=== PATIENT | female | born 2000 | race Caucasian/White ===

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

== ENCOUNTER 2025-01-29 23:48 | Emergency (ER) | payer OTHER ==
[~2025-01-29] VITALS: Ht 162.6 cm; Wt 59.0 kg
[2025-01-30 01:00] VITALS: BP 103/68
[2025-01-30 01:59] LABS: Source, Urine Clean Catch
[2025-01-30 02:04] LABS: BASOPHILS ABSOLUTE AUTO 0.04 K/mm3 (0.00-0.23); BASOPHILS PERCENT AUTO 1 % (0-2); EOSINOPHILS ABSOLUTE AUTO 0.03 K/mm3 (0.00-0.68); EOSINOPHILS PERCENT AUTO 0 % (0-6); Hematocrit 32.6 % (33.0-51.0); IMMATURE GRAN ABSOLUTE AUTO 0.02 K/mm3 (0.00-0.10); IMMATURE GRAN PERCENT AUTO 0 % (0-1); LYMPHOCYTES ABSOLUTE AUTO 1.55 K/mm3 (0.84-5.20); LYMPHOCYTES PERCENT AUTO 18 % (21-46); MONOCYTES ABSOLUTE AUTO 0.54 K/mm3 (0.16-1.47); MONOCYTES PERCENT AUTO 6 % (4-13); Mean Corpuscular HGB 28.4 pg (26.0-34.0); Mean Corpuscular HGB Conc 33.7 g/dL (31.5-36.5); Mean Corpuscular Volume 84 fL (80-100); Mean Platelet Volume 9.8 fL (9.1-12.4); NEUTROPHILS ABSOLUTE AUTO 6.25 K/mm3 (1.96-9.15); NEUTROPHILS PERCENT AUTO 74 % (41-73); Platelet Count 229 K/mm3 (150-400); Red Blood Cell Count 3.87 M/mm3 (3.80-5.20); White Blood Cell Count 8.43 K/mm3 (4.00-11.30)
[2025-01-30 02:07] LABS: Bilirubin, Urine Neg (Neg); Blood, Urine 5+ (Neg); Glucose Qualitative, Urine Neg (Neg); Ketones, Urine Neg (Neg); Leukocyte Esterase, Urine Neg (Neg); Nitrite, Urine Neg (Neg); Protein, Urine Neg (Neg); Specific Gravity, Urine 1.025 (1.003-1.022); Urobilinogen, Urine NORM (Normal)
[2025-01-30 02:10] LABS: Appearance, Urine Clear (Clear); Color, Urine Yellow (P-Yellow)
[2025-01-30 02:21] LABS: Amorphous Light (0-Heavy); Bacteria Mod /hpf; Mucus Light (0-Heavy); Squamous Epithelial Cells Few /hpf (Few); White Blood Cells, Urine 0-2 /hpf (0-5)
[2025-01-30 02:37] LABS: Albumin/Globulin Ratio 0.7 (0.8-1.8); Bilirubin, Total 0.2 mg/dL (0.1-1.0); Bun/Creatinine Ratio 6.5 (12.0-20.0); Calcium, Blood 9.1 mg/dL (8.5-10.1); Creatinine, Blood 0.46 mg/dL (0.40-1.00); Globulin, Blood 4.1 g/dL (2.2-4.0); Potassium, Blood 3.5 mmol/L (3.5-5.5); Total Protein, Blood 7.1 g/dL (6.4-8.2)
[2025-01-30] MEDS ORDERED: NS 1,000 ML IV SCH (04:05)
[2025-01-30] MEDS ORDERED: CEPH500 PO (04:20)
== END 2025-01-30 04:37 | disposition home or self-care (01) ==
LOC: ER 23:48
PROVIDERS: Emergency Medicine
DX: O46.92 Antepartum hemorrhage, unspecified, second trimester (principal); O99.891 Other specified diseases and conditions complicating pregnancy; R82.71 Bacteriuria; O99.282 Endocrine, nutritional and metabolic diseases complicating pregnancy, second trimester; E86.0 Dehydration; Z3A.20 20 weeks gestation of pregnancy; Z88.0 Allergy status to penicillin; Z59.89 Other problems related to housing and economic circumstances
CPT/HCPCS: 76815; 80053; 81001; 84702; 85025; 86850; 86900; 86901; 87086; 99284-25; J7030

== ENCOUNTER → 2025-04-24 | Outpatient (CLI) | payer OTHER ==
[~2025-04-24] MED LIST changes: +CEPH500 PO
== END | disposition home or self-care (01) ==
LOC: LAB SHORT 15:54 → LAB 15:54
DX: O09.93 Supervision of high risk pregnancy, unspecified, third trimester (principal)
CPT/HCPCS: 87081; 87150

== ENCOUNTER → 2025-04-29 | Outpatient (CLI) | payer OTHER ==
[2025-04-29 20:24] LABS: Bacterial Vaginosis PCR Negative (NEGATIVE); Candida Group, PCR NOT DETECTED (NOT DETECT); Candida glabrata-krusei, PCR NOT DETECTED (NOT DETECT)
== END ==
LOC: LAB 16:41 → LAB SHORT 16:41
PROVIDERS: Obstetrics & Gynecology
DX: N76.0 Acute vaginitis (principal)
CPT/HCPCS: 81515

== ENCOUNTER 2025-05-29 19:58 | Inpatient (IN) | payer OTHER ==
[~2025-05-29] VITALS: Ht 170.2 cm; Wt 75.9 kg
[2025-05-29] MEDS ORDERED: ePHEDrine Sulfate 50 MG/ML 1ML Injection XX PRN (20:10)
[2025-05-29] MEDS ORDERED: Carboprost Tromethamine 250 MCG/ML 1ML Amp IM PRN (20:10)
[2025-05-29] MEDS ORDERED: OXYTOCIN/RINGER'S LACTATE 500 ML IV PRN (20:10)
[2025-05-29] MEDS ORDERED: Ondansetron HCl 2 MG / ML 2ML Vial IV PRN (20:10)
[2025-05-29] MEDS ORDERED: FentaNYL 2mcg/ml-Bup 0.1% Epd 250 ML EPI PRN (20:10)
[2025-05-29] MEDS ORDERED: Oxytocin 10 Unit / ML Vial IM PRN (20:10)
[2025-05-29] MEDS ORDERED: Methylergonovine Maleate 0.2MG / ML 1ML Amp IM PRN (20:10)
[2025-05-29 20:24] VITALS: BP 120/75
[2025-05-29] MEDS ORDERED: Tranexamic Acid 100 ML IV SCH (20:30)
[2025-05-29 20:55] LABS: BASOPHILS ABSOLUTE AUTO 0.03 K/mm3 (0.00-0.23); BASOPHILS PERCENT AUTO 0 % (0-2); EOSINOPHILS ABSOLUTE AUTO 0.01 K/mm3 (0.00-0.68); EOSINOPHILS PERCENT AUTO 0 % (0-6); Hematocrit 34.0 % (33.0-51.0); Hemoglobin 11.4 g/dL (11.5-16.0); IMMATURE GRAN ABSOLUTE AUTO 0.05 K/mm3 (0.00-0.10); IMMATURE GRAN PERCENT AUTO 1 % (0-1); LYMPHOCYTES ABSOLUTE AUTO 1.34 K/mm3 (0.84-5.20); LYMPHOCYTES PERCENT AUTO 13 % (21-46); MONOCYTES ABSOLUTE AUTO 0.63 K/mm3 (0.16-1.47); MONOCYTES PERCENT AUTO 6 % (4-13); Mean Corpuscular HGB Conc 33.5 g/dL (31.5-36.5); Mean Corpuscular Volume 82 fL (80-100); NEUTROPHILS ABSOLUTE AUTO 8.33 K/mm3 (1.96-9.15); NEUTROPHILS PERCENT AUTO 80 % (41-73); NRBC ABSOLUTE 0.00 K/mm3 (0.00-0.02); NRBC Auto 0.0 /100 WBC (0.0-0.2); Platelet Count 275 K/mm3 (150-400); RDW Coefficient Variation 13.2 % (11.7-14.2); RDW Standard Deviation 39.8 fL (35.1-46.3)
[2025-05-29 22:57] VITALS: BP 122/69
[2025-05-29] MEDS ORDERED: OXYTOCIN/RINGER'S LACTATE 500 ML IV SCH (23:10)
[2025-05-30] VITALS (16 sets, daily range): BP systolic 105–129; BP diastolic 51–82
[2025-05-30] MEDS ORDERED: FentaNYL Citrate 50 MCG/ML 2 ML Injection ONE (07:38)
[2025-05-30] MEDS ORDERED: FentaNYL Citrate 50 MCG/ML 2 ML Injection IV PRN (07:45)
--- NOTE | 2025-05-30 14:30 | NUR ---
[facility] charting reviewed.
[2025-05-31] VITALS (22 sets, daily range): BP systolic 92–119; BP diastolic 61–74
[2025-05-31] MEDS ORDERED: CeFAZolin Sodium 2,000 MG in NS 100 ML IV SCH (06:25)
[2025-05-31] MEDS ORDERED: Citric Acid/Sodium Citrate 30 ML BTL PO STA (06:37)
[2025-05-31] MEDS ORDERED: Metoclopramide HCl 5MG / ML 2ML Vial IV ONE (06:40)
[2025-05-31] MEDS ORDERED: FentaNYL Citrate 50 MCG/ML 2 ML Injection ONE (07:31)
[2025-05-31] MEDS ORDERED: Oxytocin 10 Unit / ML Vial ONE (07:32)
[2025-05-31] MEDS ORDERED: Ketorolac Tromethamine 30mg Vial ONE (07:32)
[2025-05-31] MEDS ORDERED: Ondansetron HCl 2 MG / ML 2ML Vial ONE (07:32)
[2025-05-31] MEDS ORDERED: Phenylephrine HCl 10mg/ml 1 ml Vial ONE (07:43)
[2025-05-31] MEDS ORDERED: Phenylephrine HCl 100 MCG/ML-NS 10MLSYR (1MG/10ML) ONE (07:58)
--- NOTE | 2025-05-31 08:24 | NUR ---
05/31/25 0824 Scoles,Marquita FHTS PRIOR TO C/S 120S WITH AUDIBLE DECEL TO 100S. VIABLE FEMALE INFANT DELIVERED VIA PRIMARY CS DUE TO FAILURE TO PROGRESS AT 0814. 9/9 APGARS. NO GASES SENT PER PROVIDER ORDER. CORD BLOOD COLLECTED FOR RH STATUS AND ALSO GENETIC TESTING. SENT WITH BABY RN VIDAL FLOR RN. MEASUREMENTS PENDING. SEE MD NOTE FOR OPERATIVE DETAILS.
[2025-05-31] MEDS ORDERED: Ondansetron HCl 2 MG / ML 2ML Vial IV PRN ×2 (08:30→09:10)
[2025-05-31] MEDS ORDERED: HYDROmorphone HCl/Pf 1MG SYR IV PRN (08:30)
[2025-05-31] MEDS ORDERED: FentaNYL Citrate 50 MCG/ML 2 ML Injection IV PRN (08:30)
[2025-05-31] MEDS ORDERED: ePHEDrine Sulfate 50 MG/ML 1ML Injection IV PRN (08:30)
[2025-05-31] MEDS ORDERED: Methylergonovine Maleate 0.2MG / ML 1ML Amp IM PRN (09:00)
[2025-05-31] MEDS ORDERED: Magnesium Hydroxide Conc 10 ML UDC PO PRN (09:00)
[2025-05-31] MEDS ORDERED: OXYTOCIN/RINGER'S LACTATE 500 ML IV SCH (09:05)
[2025-05-31] MEDS ORDERED: Morphine Sulfate 4 MG/1 ML Injection IV PRN (09:10)
[2025-05-31] MEDS ORDERED: Rho(D) Immune Globulin 300 MCG / SYR IM ONE ×2 (09:10→16:00)
[2025-05-31] MEDS ORDERED: Carboprost Tromethamine 250 MCG/ML 1ML Amp IM PRN (09:15)
[2025-05-31] MEDS ORDERED: Ketorolac Tromethamine 30mg Vial IV SCH (10:00)
[2025-06-01 04:16] VITALS: BP 115/64
[2025-06-01 05:57] LABS: BASOPHILS ABSOLUTE AUTO 0.03 K/mm3 (0.00-0.23); BASOPHILS PERCENT AUTO 0 % (0-2); EOSINOPHILS ABSOLUTE AUTO 0.01 K/mm3 (0.00-0.68); EOSINOPHILS PERCENT AUTO 0 % (0-6); Hematocrit 28.8 % (33.0-51.0); Hemoglobin 9.7 g/dL (11.5-16.0); IMMATURE GRAN ABSOLUTE AUTO 0.06 K/mm3 (0.00-0.10); IMMATURE GRAN PERCENT AUTO 1 % (0-1); LYMPHOCYTES ABSOLUTE AUTO 1.23 K/mm3 (0.84-5.20); LYMPHOCYTES PERCENT AUTO 11 % (21-46); MONOCYTES ABSOLUTE AUTO 0.51 K/mm3 (0.16-1.47); MONOCYTES PERCENT AUTO 4 % (4-13); Mean Corpuscular HGB Conc 33.7 g/dL (31.5-36.5); Mean Corpuscular Volume 84 fL (80-100); NEUTROPHILS ABSOLUTE AUTO 9.90 K/mm3 (1.96-9.15); NEUTROPHILS PERCENT AUTO 84 % (41-73); NRBC ABSOLUTE 0.00 K/mm3 (0.00-0.02); NRBC Auto 0.0 /100 WBC (0.0-0.2); Platelet Count 243 K/mm3 (150-400); RDW Coefficient Variation 13.6 % (11.7-14.2); RDW Standard Deviation 41.3 fL (35.1-46.3)
[2025-06-01] MEDS ORDERED: Prenatal Vit/FE Fumarate/FA 1 Tab PO SCH (09:00)
[2025-06-01 09:48] VITALS: BP 120/75
--- NOTE | 2025-06-01 10:28 | NUR ---
CONCERNS FOR BONDING BETWEEN MOM AND BABY. PER THE NIGHTSHIFT NURSE, HARRY, PT DID NOT HOLD HER BABY AT ALL LAST NIGHT. DURING MY TIME CARING FOR HER YESTERDAY, THE PT HELD HER BABY FOR 2 SHORT MOMENTS. PT HAS NOT DONE ANY OF THE FEEDINGS OR DIAPER CHANGES. THIS RN TALKED WITH PT THIS MORNING ABOUT HOW IMPORTANT IT IS FOR HER TO LEARN TO HOW FEED HER BABY AND BE ABLE TO TAKE CARE OF HER WHEN SHE IS DISCHARGED HOME, PT SATEED "OH, OKAY" AND THEN FELL ASLEEP WHILE RN WAS FEEDING BABY AND EXPLAINING HOW TO DO IT. JUAN PABLO NELSON, THIS [facility], WAS CALLED THIS MRONING AROUND 1018 TO ASK TO COME AND EVALUATE PT. PT HAS NOT YET COMPLTED HER DEPRESSION SCREENING, BUT SHE HAS AT HER BEDSIDE AND HAS BEEN INSTRUCTED TO COMPLETE IT.
--- NOTE | 2025-06-01 10:42 | NUR ---
RN ENCOURAGED PT TO HOLD HER BABY AND ATTEMPT TO DO THE NEXT FEED THAT IS DUE AROUND 1100. PT IS CURRENTLY HOLDING HER , WHILE IS SWADDLED IN HER ARMS.
[2025-06-01 15:48] VITALS: BP 121/75
[2025-06-01] MEDS ORDERED: IBUP800 PO (16:17)
[2025-06-01] MEDS ORDERED: DOCU100 PO (16:18)
[2025-06-01] MEDS ORDERED: ACET500 PO (16:18)
[2025-06-01 19:04] VITALS: BP 123/78
[2025-06-02 00:06] VITALS: BP 125/76
[2025-06-02 05:22] VITALS: BP 115/70
[2025-06-02 08:31] VITALS: BP 126/77
[2025-06-02 13:39] VITALS: BP 122/76
--- NOTE | 2025-06-02 15:41 | NUR ---
ATTEMPTED TO CONTACT DALLIN NELSON, ASSOCIATE PROFESSOR OF MUSIC. LEFT A VOICEMAIL FOR HER TO CALL THIS RN BACK.
--- NOTE | 2025-06-02 16:06 | NUR ---
DALLIN NELSON, INSTRUCTOR ADJUNCT SURGICAL TECHNICIAN, CALLED BACK. THIS RN ASKED IF PT HAD BEEN SEEN BY HER YESTERDAY, SHE STATES THAT SHE WAS UNABLE TO COME BY. UPDATED HER THAT PPDS WAS 0, BUT EXPRESSED CONCERNS FOR POOR BONDING AND THAT THE PLAN IS TO PLACE PT TO BOARDER STATUS. DALLIN STATED THAT SHE WILL COME BY TOMORROW TO EVALUATE HER.
[2025-06-02 16:12] VITALS: BP 122/79
--- NOTE | 2025-06-02 18:45 | NUR ---
SHIFT SUMMARY PT WAS ENCOURAGED TO HOLD HER AND DID APPROXIMATELY TWICE TODAY. PT MOTHER AND SUSPECTED FATHER OF BABY PROVIDED THE MAJORITY OF CARE THROUGHOUT THE SHIFT TODAY. THIS RN TO BEDSIDE TO ASSIST WITH FEEDS NEEDED. PT ASKED IF SHE HAS PARTICIPATED OR WOULD LIKE TO PROVIDE FEEDS, SHE STATED "I TRIED TO THIS MORNING". SHE STATES THAT SHE HAS CHANGED ONE DIAPER. SPOKE WITH PT REGARDING GOING TO BOARDER STATUS TODAY, SHE STATED THAT DR ROBERTS HAD OFFERED TO LET HER STAY THE NIGHT AND SHE WOULD BE MORE COMFORTABLE WITH THAT. INFORMED DR ROBERTS OF PT DECISION.
[2025-06-02 19:56] VITALS: BP 115/71
[2025-06-03 04:13] VITALS: BP 121/76
[2025-06-03 08:41] VITALS: BP 122/76
[2025-06-03 12:46] VITALS: BP 117/75
--- NOTE | 2025-06-03 14:04 | NUR ---
GARNETT MACHINE OPERATOR HELPER DALLIN NELSON TO BEDSIDE.
--- NOTE | 2025-06-03 18:23 | NUR ---
PT APPEARED INTERESTED IN ATTEMPTING TO FEED WITH 1730 FEED. THIS RN TO BEDSIDE, PT HOLDING AND IS ASSISTED BY PT MOTHER TO PERFORM FEEDS. THIS RN PROVIDED EDUCATION TO PT REGARDING FEED, PT SEEMED TO BE RECEPTIVE. PT ALSO STATES THAT SHE HAS CHANGED THE 'S DIAPER. PT WAS UNABLE TO FINISH FEED, THIS RN PERFORMED THE REST OF THE FEED. DISCHARGE INSTRUCTIONS AND EDUCATION ON BOARDER STATUS PROVIDED. PT VOICES UNDERSTANDING. PT MOTHER REMAINS AT BEDSIDE, ASSISTING WITH CARE OF .
== END 2025-06-03 18:13 | disposition home or self-care (01) | DRG 785 ==
LOC: OBS 19:58 → BC 19:59 → OBS 20:10 → BC 20:11
PROVIDERS: ADMIT Obstetrics & Gynecology
PROC: 0UT70ZZ Resection of Bilateral Fallopian Tubes, Open Approach (ICD-10-PCS; 2025-05-31)
PROC: 3E033VJ Introduction of Other Hormone into Peripheral Vein, Percutaneous Approach (ICD-10-PCS; 2025-05-31)
PROC: 3E0234Z Introduction of Serum, Toxoid and Vaccine into Muscle, Percutaneous Approach (ICD-10-PCS; 2025-05-31)
PROC: 3E03329 Introduction of Other Anti-infective into Peripheral Vein, Percutaneous Approach (ICD-10-PCS; 2025-05-31)
PROC: 10D00Z1 Extraction of Products of Conception, Low, Open Approach (ICD-10-PCS; principal; 2025-05-31 07:15)
DX: O48.0 Post-term pregnancy (principal); O35.8XX0 Maternal care for other (suspected) fetal abnormality and damage, not applicable or unspecified; O62.1 Secondary uterine inertia; O26.893 Other specified pregnancy related conditions, third trimester; Z67.41 Type O blood, Rh negative; Z88.0 Allergy status to penicillin; Z3A.41 41 weeks gestation of pregnancy; Z37.0 Single live birth
CPT/HCPCS: 36415; 85025; 85460; 86850; 86870; 86900; 86901; 86922; 88302; A9270; J0456; J0690; J1885; J2371; J2405; J2590; J2791; J3010; J7050; J7120